=== PATIENT | female | born 1950 | race Caucasian/White ===

== ENCOUNTER 2019-07-25 17:33 | Inpatient (IN) ==
[2019-07-25] MEDS ORDERED: ASPIRIN CHEW 324 MG PO STA (18:01)
[2019-07-25 18:30] LABS: Basophils # (auto) 0.02 K/uL (0-0.2); Basophils % (auto) 0.3 %; Eosinophils # (auto) 0.12 K/uL (0-0.5); Eosinophils % (auto) 1.8 %; Hematocrit (blood only) 41.5 % (37-47); Immature Granulocytes # (auto) 0.03 K/uL (0.00-0.02); Immature Granulocytes % (auto) 0.5 %; Lymphocytes # (auto) 1.79 K/uL (1.2-3.4); Lymphocytes % (auto) 27.3 %; Mean Corpuscular Hemoglobin 31.7 pg (25-34); Mean Corpuscular Hgb Conc 33.7 g/dL (32-36); Mean Corpuscular Volume 93.9 fL (80-100); Mean Platelet Volume 10.3 fL (7.4-10.4); Monocytes # (auto) 0.48 K/uL (0.11-0.59); Monocytes % (auto) 7.3 %; Neutrophils # (auto) 4.11 K/uL (1.4-6.5); Neutrophils % (auto) 62.8 %; Platelet Count 207 K/uL (130-400); RDW Coefficient of Variation 12.8 % (11.5-14.5); RDW Standard Deviation 44.2 fL (36.4-46.3); Red Blood Count 4.42 M/uL (4.2-5.4); White Blood Count 6.55 K/uL (4.8-10.8)
[2019-07-25 18:39] LABS: BUN Creatinine Ratio 18.2 (10-20); Blood Urea Nitrogen 20 mg/dl (7-18); Calcium 9.5 mg/dl (8.5-10.1); Carbon Dioxide 28 mmol/L (21-32); Chloride 106 mmol/L (98-107); Creatinine Clr Calc Pharmacy 53.3 ml/min; Est GFR (African American) 59.7; Est GFR (Non-African American) 51.5; Glucose 114 mg/dl (70-99); Lipase 206 U/L (73-393); Potassium 4.1 mmol/L (3.5-5.1); Sodium 139 mmol/L (136-145)
[2019-07-25 18:42] LABS: Appearance Urine Clear (Clear); Bilirubin Urine Negative (Negative); Blood Urine Negative (Negative); Color Urine Yellow; Glucose Urine UA Negative (Negative); Ketones Urine Negative (Negative); Leukocyte Esterase Urine 2+ (Negative); Nitrite Urine Negative (Negative); Protein Urine Negative (Negative); Specific Gravity Urine 1.006 (1.000-1.030); Urobilinogen Urine Negative (Negative); pH Urine 6.5 (4.5-7.5)
[2019-07-25 18:44] LABS: Troponin I < 0.015 ng/ml (0-0.045)
--- NOTE | 2019-07-25 18:55 | XRay Report ---
XR chest 2V PA/lateral HISTORY: 68 years-old Female Chest Pain acute atypical chest pain COMPARISON: Chest radiographs 07/09/2008 TECHNIQUE: PA and lateral views of the chest FINDINGS: Cardiac silhouette is upper limits of normal in size, increased from comparison. No pneumothorax, ple ural effusion or overt pulmonary edema. Minimal opacities of the inferior segment lingula suggests at electasis or scarring. No airspace consolidation typical for pneumonia. Degenerative changes of the s houlders and spine. Calcified plaque of the aorta. 1.3 cm nodular opacity of the lateral left midlung is new from comparison. IMPRESSION: 1. Minimal left lung base opacities suggest atelectasis or scarring. 2. 1.3 cm nodular opacity of the lateral left midlung is new from the 2009 exam and may reflect a chanelle cified granuloma. ACT 112: Negative or not required by law. The above report was generated using voice recognition software. It may contain grammatical, syntax o r spelling errors. Results electronically sent 07/25/2019 6:54 PM to: Cleve Mendoza Electronically signed by: Garfield Ibrahim M.D. 07/25/2019 6:54 PM
[2019-07-25 18:56] LABS: Partial Thromboplastin Ratio 0.9; Partial Thromboplastin Time 23.4 Seconds (21.0-31.0); Prothrombin Time 10.2 Seconds (9.0-12.0)
[2019-07-25 19:14] LABS: Epithelial Cell Urine 0-5 /lpf (0-5)
[2019-07-25 19:16] LABS: Bacteria Urine 1+ (Negative); RBC Urine 0-4 /hpf (0-4)
--- NOTE | 2019-07-25 20:10 | History & Physical Report ---
Date of Service July 25, 2019 Assessment & Plan (1) Tachycardia-bradycardia syndrome: This is a 68-year-old female who has significant PMH of HTN, HLD, CKD stage III, history of PSVT who presents to ED at the referral of her manager semiconductor secondary to evidence of tachybradycardia syndrome on Holter monitor. Patient had outpatient 0 patch performed which resulted on 07/25/2019. Final interpretation is concerning for evidence of tachy-mila syndrome, patient with episode of atrial fibrillation with RVR along with pauses recording from 3.75 seconds. ED provider discussed case with on-call manager semiconductor who recommended admission, no IV heparin. Admit to PCU Monitor on telemetry Consult cardiology -possible EP procedure given evidence of tachybrady syndrome hold metoprolol this evening NPO after midnight (2) HTN (hypertension): Blood pressure stable on losartan and metoprolol Hold metoprolol this evening until evaluated by cardiology given report of pauses (3) HLD (hyperlipidemia): Continue statin (4) CKD (chronic kidney disease), stage III: baseline cr 1-1.10 bun/ cr 20/1.10 today (5) Asymptomatic bacteriuria: Urinalysis revealed +2 leukocyte esterase and +1 bacteria, minimal epithelial Patient asymptomatic, afebrile and wbc WNL urine culture ordered - await results (6) Abnormal CXR: CXR Revealed: 1.3 cm nodular opacity of the lateral left midlung is new from the 2009 exam and may reflect a calcified granuloma. recommend follow up with PCP For repeat evaluation asymptomatic (7) DVT prophylaxis: SCD/TEDS for now, possible EP procedure in a.m. Disposition: admit to telemetry Follow up: PCP Dr. Pringle upon discharge Pt was seen and examined in collaboration with Dr. Moran, please see addendum History of Present Illness Chief Complaint: Referred by manager semiconductor secondary to tachybradycardia syndrome. Primary Care Provider: Deedee Pringle MD This is a 68-year-old female who has significant PMH of HTN, HLD, CKD stage III, history of PSVT who presents to ED at the referral of her manager semiconductor secondary to evidence of tachybradycardia syndrome on Holter monitor. She elicits for years she has had episodes of, "my heart racing very fast for about 1 hour," and that resolves. She describes these as heart palpitations that resolve on their own. When she gets the palpitations she is otherwise asymptomatic and denies any associated chest pain, shortness of breath, fatigue, dizziness or lightheadedness. She denies any recent illness. She elicits her mom and sister have had something similar in which they both have had pacemakers. Currently she otherwise feels well and has and other family members at bedside. She denies any fever, chills, sweats, lightheadedness, dizziness, chest pain, shortness of breath, nausea, vomiting, abdominal pain, dysuria, increased urgency or frequency with urination, melena, hematochezia. Her appetite has been, "too good." She denies significant weight gain or loss. She denies any lower extremity swelling. In ED she remained hemodynamically stable. She remained in normal sinus rhythm. She underwent CBC and CMP which was relatively unremarkable, BUN and creatinine 20 and 1.10, glucose 114, mag 2.0, troponin WNL. Urinalysis +2 leukocyte esterase, +1 bacteria. She is afebrile, WBC WNL and asymptomatic. Urine culture sent. CXR: revealed 1.3 cm nodular opacity of the left lung mid zone which is new from 2009 exam, may reflect calcified granuloma, minimal left lung base opacities suggest atelectasis or scarring. EKG revealed NSR. Allergies Allergy/AdvReac Type Severity Reaction Status Date / Time No Known Allergies Allergy Unknown ? Verified 07/25/19 19:25 naproxen AdvReac Intermediate NAUSEA Verified 07/25/19 19:25 WITH STOMACH PAIN Home Medications Home Medications Medication Instructions Recorded Confirmed Type Lactobacillus acidophilus 0 mg PO DAILY 07/25/19 07/25/19 History [Acidophilus] aspirin 81 mg PO QPM 07/25/19 07/25/19 History garlic 1,000 mg PO DAILY 07/25/19 07/25/19 History losartan [Cozaar] 25 mg PO DAILY 07/25/19 07/25/19 History metoprolol succinate [Toprol XL] 25 mg PO QPM 07/25/19 07/25/19 History omega 2-ypq-gnt-fish oil [Fish Oil] 1 cap PO DAILY 07/25/19 07/25/19 History polyethylene glycol 3350 [Miralax] 17 g PO DAILY PRN 07/25/19 07/25/19 History simvastatin [Zocor] 20 mg PO QPM 07/25/19 07/25/19 History Past Med/Surg History Medical History (Updated 07/25/19 @ 20:25 by Nica Sheets PA-C) CKD (chronic kidney disease), stage III Diaphragmatic hernia History of PSVT (paroxysmal supraventricular tachycardia) HLD (hyperlipidemia) HTN (hypertension) Surgical History History of hysterectomy History of total left hip replacement Family History Mother Pacemaker Coronary heart disease Sister Pacemaker Father Myocardial infarction, Onset Age: 95 Other No pertinent family history Social History Preferred Language: Urdu Communication Ability: Effective marital status: Current Living Situation: Spouse Feels Safe at Home: Yes Smoking Status: Never smoker Hx Alcohol Use: No Hx Substance Use: No Review of Systems Review of Systems: All systems reviewed & are unremarkable except as noted in HPI & below Physical Exam Physical Exam: Constitutional: WD/WN, vitals as above, NAD, sitting up in bed, pleasant, conversing easily Head: Normocephalic, Atraumatic Eyes: PERRL, conjunctivae normal, anicteric sclerae ENMT: external ear and nose normal, oropharynx normal Neck: trachea midline, no thyromegaly normal visual inspection Respiratory: normal respiratory effort, lungs clear to auscultation, no wheeze, rales, rhonchi. Normal insp/exp effort, no accessory muscle use Cardiovascular: RRR, no murmur, trace lower extremity edema Vessels: no JVD or carotid bruit Chest: normal inspection of chest Abdomen: normal bowel sounds, soft, nontender, no hepatosplenomegaly Musculoskeletal: no cyanosis or clubbing, extremities motor strength 5/5 Skin: no rashes, warm and dry normal turgor Neurologic: PERRL, EOMI, accommodation nl, no face palsy, no dysarthria CN's II-XI intact bilaterally and moves all extremities Psychiatric: A+Ox3, euthymic affect Lymphatic: no cervical or axillary lymphadenopathy : deferred Results & Data Vital Signs (Past 12 Hours) Vital Signs Temp Pulse Pulse Resp BP BP Pulse Ox 07/25/19 19:15 83 18 135/82 93 07/25/19 18:15 95 07/25/19 17:51 36.8 C 101 H 20 165/95 H 96 Laboratory Results Short CBC 07/25/19 Range/Units 18:10 WBC 6.55 (4.8-10.8) K/uL Hgb 14.0 (12.0-16.0) g/dL Hct 41.5 (37-47) % Plt Count 207 (130-400) K/uL BMP 07/25/19 18:10 Sodium 139 Potassium 4.1 Chloride 106 Carbon Dioxide 28 BUN 20 H Creatinine 1.10 Glucose 114 H Calcium 9.5 Cardiac Enzymes 07/25/19 Range/Units 18:10 Troponin I < 0.015 (0-0.045) ng/ml Urine 07/25/19 Range/Units 18:10 Urine Color Yellow Urine Appearance Clear (Clear) Urine pH 6.5 (4.5-7.5) Ur Specific [place] 1.006 (1.000-1.030) Urine Protein Negative (Negative) Urine Glucose (UA) Negative (Negative) Diagnostic Findings ZIO Patch done as outpt on 07/08/2019 ready 07/25/2019: "REASON FOR STUDY: CONCLUSIONS: Patient had a min HR of 47 bpm, max HR of 240 bpm, and avg HR of 69 bpm. Predominant underlying rhythm was Sinus Rhythm. 1 run of Ventricular Tachycardia occurred lasting 5 beats with a max rate of 240 bpm (avg 196 bpm). 6 Supraventricular Tachycardia runs occurred, the run with the fastest interval lasting 11 beats with a max rate of 174 bpm (avg 138 bpm); the run with the fastest interval was also the longest. Atrial Fibrillation occurred (2% burden), ranging from 91-223 bpm (avg of 147 bpm), the longest lasting 1 hour 37 mins with an avg rate of 154 bpm. 3 Pauses occurred, the longest lasting 5 secs (12 bpm). Atrial Fibrillation was detected within +/- 45 seconds of symptomatic patient event(s). Isolated SVEs were rare (<1.0%), SVE Couplets were rare (<1.0%), and SVE Triplets were rare (<1.0%). Isolated VEs were rare (<1.0%), and no VE Couplets or VE Triplets were present. MD notification criteria for Rapid Atrial Fibrillation met - report posted prior to notification per account request (CG). Final Interpretation : Agree with findings listed above. Evidence of tachycardia- bradycardia syndrome. Patient's symptoms correlated with atrial fibrillation and rapid ventricular response. Three pauses recorded ranging from 3.7 to 5 seconds. Pauses occurred during atrial fibrillation. Two of the three pauses occurred during conversion from atrial fibrillation to sinus rhythm. The 3rd pause of 4.2 sec duration, occurred during atrial fibrillation terminating in a junctional escape beat followed by recurrent atrial fibrillation. No symptoms were associated with these pauses occurring between 8:23 and 9:20 p.m. on 07/15/19. Recommend electrophysiology consultation." Medications Administered Discontinued Medications Aspirin (Aspirin) 324 mg PO NOW STA Stop: 07/25/19 18:02 Last Admin: 07/25/19 18:32 Dose: 324 mg Documented by: [id number] ECG Rhythm: normal sinus Code Status & VTE Plan Code Status Full Code VTE Prophylaxis Plan VTE Prophylaxis will be ordered: Yes Supervising Physician Co-Signing Physician Notes Attending addendum The patient was seen and examined today in emergency room in presence of the family members She has been complaining of episodic palpitation that lasts for about an hour associated with some dizziness and weakness which has been going on for a while She had a ZIO Patch placed recently which showed tachybradycardia syndrome with significant pauses and was advised to come into the hospital Denies any symptoms during examination On examination No apparent distress at rest Chest-clear to auscultate bilaterally Heart-S1-S2, regular Abdomen-benign Extremities-trace to 1+ edema bilaterally CREDIT REVIEW OFFICER-alert, awake and oriented x3 Her admission labs and imaging studies and EKG reviewed Has tachybradycardia syndrome/atrial fibrillation with pauses Cardiology consulted Agree with assessment and plan as outlined above by AIMEE Sanchez Dr
--- NOTE | 2019-07-25 20:15 | Emergency Department Note ---
Entered by Radha Rodrigues acting as a scribe for Cleve Mendoza History of Present Illness General Chief complaint: Arrhythmia/Palpitations Stated complaint: AFIB- DR REQUESTING <3 MONITOR PLACEMENT Time Seen by Provider: 07/25/19 17:55 Source: patient History of Present Illness Onset (ago): week(s) (2) Location: chest Pain Consistency: + intermittent Quality: + other (arrhythmias) Associated symptoms: + denies other symptoms (falls, loss of consciousness, blood in urine or stools); no chest pain The patient is a 68 year old female who presents to the Emergency Room with complaints of intermittent arrhythmias for the past two weeks. The patient states she was wearing a monitor for two weeks and she received a call from Dr. Gould's office today about the results. She notes she was told to come to the ER and states she is supposed to be getting a pacemaker placed tomorrow. The patient denies falls, loss of consciousness, chest pain, and blood in her urine or stools. Home Medications Home Medications Medication Instructions Recorded Confirmed Type Lactobacillus acidophilus 0 mg PO DAILY 07/25/19 07/25/19 History [Acidophilus] aspirin 81 mg PO QPM 07/25/19 07/25/19 History garlic 1,000 mg PO DAILY 07/25/19 07/25/19 History losartan [Cozaar] 25 mg PO DAILY 07/25/19 07/25/19 History metoprolol succinate [Toprol XL] 25 mg PO QPM 07/25/19 07/25/19 History omega 0-sql-peu-fish oil [Fish Oil] 1 cap PO DAILY 07/25/19 07/25/19 History polyethylene glycol 3350 [Miralax] 17 g PO DAILY PRN 07/25/19 07/25/19 History simvastatin [Zocor] 20 mg PO QPM 07/25/19 07/25/19 History Allergies Allergy/AdvReac Type Severity Reaction Status Date / Time No Known Allergies Allergy Unknown ? Verified 07/25/19 19:25 naproxen AdvReac Intermediate NAUSEA Verified 07/25/19 19:25 WITH STOMACH PAIN Past Med/Surg History Medical History (Updated 07/25/19 @ 20:25 by Nica Sheets PA-C) CKD (chronic kidney disease), stage III Diaphragmatic hernia History of PSVT (paroxysmal supraventricular tachycardia) HLD (hyperlipidemia) HTN (hypertension) Surgical History History of hysterectomy History of total left hip replacement Family History Mother Pacemaker Coronary heart disease Sister Pacemaker Father Myocardial infarction, Onset Age: 95 Other No pertinent family history Social History Preferred Language: Chinese Communication Ability: Effective marital status: Current Living Situation: Spouse Feels Safe at Home: Yes Smoking Status: Never smoker Hx Alcohol Use: No Hx Substance Use: No Review of Systems See HPI for pertinent positives & negatives. and A total of 10 systems reviewed and were otherwise negative Physical Exam Vital Signs Vital Signs - 24 hr 07/25/19 17:51 07/25/19 18:15 07/25/19 19:15 Temperature 36.8 C Temperature Source Oral Pulse Rate 101 H Pulse Rate [Finger] 83 Pulse Rhythm Regular Pulse Rhythm [Finger] Regular Pulse Strength [Finger] Normal Respiratory Rate 20 18 Respiratory Effort / Characteristics Non-Labored Spontaneous Respiratory Depth Normal Respiratory Pattern Regular Blood Pressure 165/95 H Blood Pressure [Left Arm] 135/82 Blood Pressure Mean 118 Blood Pressure Mean [Left Arm] 99 Blood Pressure Position Sitting Blood Pressure Position [Left Arm] Lying Pulse Oximetry 96 95 93 Oxygen Delivery Method Room Air Room Air Sepsis Recent Fever Within 48 Hours No Sepsis New/Unexplained Change in Mental Status No Sepsis Action Taken by Nursing No Action Required GENERAL: She is oriented to person, place, and time. She appears well-developed and well-nourished. She does not appear distressed. HENT: Exam performed. Head: Normocephalic and atraumatic. Right Ear: External ear normal. No mastoid tenderness. Left Ear: External ear normal. No mastoid tenderness. Mouth/Throat: The oropharynx is clear and moist. No trismus in the jaw. No dental abscesses or uvula swelling. No oropharyngeal exudate or tonsillar abscesses. EYES: Conjunctivae and EOM are normal. Pupils are equal, round, and reactive to light. Right eye exhibits no discharge. Left eye exhibits no discharge. No scleral icterus. NECK: Normal range of motion. Neck supple. No JVD present. No spinous process tenderness present. No carotid bruit present. No rigidity. No tracheal deviation and normal range of motion present. No Brudzinski's sign and no Kernig's sign noted. CV: Normal rate, regular rhythm, normal heart sounds and intact distal pulses. There is no peripheral edema. Palpable radial pulses bue. PULM/CHEST: Effort normal and breath sounds normal. No respiratory distress. No stridor. She has no wheezes. She has no rales. Chest Wall: She exhibits no tenderness. ABD: The abdomen is soft. Bowel sounds are normal. She has no distension. No mass is present. There is no tenderness. There is no rebound, no guarding, no Houston's sign and no tenderness at McBurney's point. Rovsig negative MUSC/SKEL: Normal range of motion. There is no peripheral edema, tenderness or deformity. LYMPH: No cervical adenopathy. NEURO: She is alert and oriented to person, place, and time. She has normal strength. No cranial nerve deficit or sensory deficit. Coordination and gait nor mal. GCS eye subscore is 4. GCS verbal subscore is 5. GCS motor subscore is 6. cerbellar tests wnl. SKIN: Skin is warm and dry. She is not diaphoretic. PSYCH: She has a normal mood and affect. Her behavior is normal. Judgment and thought content normal. Course Course 1800: Past medical records reviewed. The patient was evaluated in room A04. A complete history and physical exam was performed. Continuous Cardiac Monitoring: An order was placed for continuous cardiac mon itoring. The monitor shows a rate of 90 with sinus rhythm. 1830: The patient's past holter monitor records from 07/25/2019 showed 1 run of ventricular tachycardia which occurred lasting 5 beats with a max rate of 240 bpm. 6 supraventricular tachycardia runs occurred. The run with the fastest interval was also the longest. Atrial Fibrillation occurred ranging from 91-223 bpm. Pauses occurred, the longest lasting 5 secs. Evidence of tachycardia- bradycardia syndrome. 0: Vital signs stable. Labs and imaging within normal limits. I spoke with Dr. Lino Renee Hospitalist who agrees the patient should be admitted. He recommends no anticoagulation at this time and NPO after midnight. Administered Medications Discontinued Medications Aspirin (Aspirin) 324 mg PO NOW STA Stop: 07/25/19 18:02 Last Admin: 07/25/19 18:32 Dose: 324 mg Documented by: [id number] Medical Decision Making Medical Records Attestation: I reviewed the patient's medical records. Home Medications Current Medication List: was personally reviewed by me Laboratory Data Attestation: I reviewed the patient's lab results. Result diagrams: 07/25/19 18:10 07/25/19 18:10 Lab Results 07/25/19 07/25/19 07/25/19 Range/Units 18:10 18:10 18:10 WBC 6.55 (4.8-10.8) K/uL RBC 4.42 (4.2-5.4) M/uL Hgb 14.0 (12.0-16.0) g/dL Hct 41.5 (37-47) % MCV 93.9 (80-100) fL MCH 31.7 (25-34) pg MCHC 33.7 (32-36) g/dL RDW Std Deviation 44.2 (36.4-46.3) fL RDW Coeff of Sebastian 12.8 (11.5-14.5) % Plt Count 207 (130-400) K/uL MPV 10.3 (7.4-10.4) fL Immature Gran % (Auto) 0.5 % Neut % (Auto) 62.8 % Lymph % (Auto) 27.3 % [place] % (Auto) 7.3 % Eos % (Auto) 1.8 % Baso % (Auto) 0.3 % Immature Gran # (Auto) 0.03 H (0.00-0.02) K/uL Neut # (Auto) 4.11 (1.4-6.5) K/uL Lymph # (Auto) 1.79 (1.2-3.4) K/uL [place] # (Auto) 0.48 (0.11-0.59) K/uL Eos # (Auto) 0.12 (0-0.5) K/uL Baso # (Auto) 0.02 (0-0.2) K/uL PT 10.2 (9.0-12.0) Seconds INR 1.0 (0.9-1.1) APTT 23.4 (21.0-31.0) Seconds PTT Ratio 0.9 Sodium 139 (136-145) mmol/L Potassium 4.1 (3.5-5.1) mmol/L Chloride 106 (98-107) mmol/L Carbon Dioxide 28 (21-32) mmol/L Anion Gap 5.0 (3-11) BUN 20 H (7-18) mg/dl Creatinine 1.10 (0.6-1.2) mg/dl Est Cr Clr Drug Dosing 53.3 ml/min Est GFR ( Amer) 59.7 Est GFR (Non-Af Amer) 51.5 BUN/Creatinine Ratio 18.2 (10-20) Glucose 114 H (70-99) mg/dl Calcium 9.5 (8.5-10.1) mg/dl Magnesium 2.0 (1.8-2.4) mg/dl Troponin I < 0.015 (0-0.045) ng/ml Lipase 206 (73-393) U/L Urine Color Urine Appearance (Clear) Urine pH (4.5-7.5) Ur Specific [place] (1.000-1.030) Urine Protein (Negative) Urine Glucose (UA) (Negative) Urine Ketones (Negative) Urine Blood (Negative) Urine Nitrite (Negative) Urine Bilirubin (Negative) Urine Urobilinogen (Negative) Ur Leukocyte Esterase (Negative) Urine RBC (0-4) /hpf Urine WBC (0-5) /hpf Ur Epithelial Cells (0-5) /lpf Urine Bacteria (Negative) 07/25/19 Range/Units 18:10 WBC (4.8-10.8) K/uL RBC (4.2-5.4) M/uL Hgb (12.0-16.0) g/dL Hct (37-47) % MCV (80-100) fL MCH (25-34) pg MCHC (32-36) g/dL RDW Std Deviation (36.4-46.3) fL RDW Coeff of Sebastian (11.5-14.5) % Plt Count (130-400) K/uL MPV (7.4-10.4) fL Immature Gran % (Auto) % Neut % (Auto) % Lymph % (Auto) % [place] % (Auto) % Eos % (Auto) % Baso % (Auto) % Immature Gran # (Auto) (0.00-0.02) K/uL Neut # (Auto) (1.4-6.5) K/uL Lymph # (Auto) (1.2-3.4) K/uL [place] # (Auto) (0.11-0.59) K/uL Eos # (Auto) (0-0.5) K/uL Baso # (Auto) (0-0.2) K/uL PT (9.0-12.0) Seconds INR (0.9-1.1) APTT (21.0-31.0) Seconds PTT Ratio Sodium (136-145) mmol/L Potassium (3.5-5.1) mmol/L Chloride (98-107) mmol/L Carbon Dioxide (21-32) mmol/L Anion Gap (3-11) BUN (7-18) mg/dl Creatinine (0.6-1.2) mg/dl Est Cr Clr Drug Dosing ml/min Est GFR ( Amer) Est GFR (Non-Af Amer) BUN/Creatinine Ratio (10-20) Glucose (70-99) mg/dl Calcium (8.5-10.1) mg/dl Magnesium (1.8-2.4) mg/dl Troponin I (0-0.045) ng/ml Lipase (73-393) U/L Urine Color Yellow Urine Appearance Clear (Clear) Urine pH 6.5 (4.5-7.5) Ur Specific [place] 1.006 (1.000-1.030) Urine Protein Negative (Negative) Urine Glucose (UA) Negative (Negative) Urine Ketones Negative (Negative) Urine Blood Negative (Negative) Urine Nitrite Negative (Negative) Urine Bilirubin Negative (Negative) Urine Urobilinogen Negative (Negative) Ur Leukocyte Esterase 2+ H (Negative) Urine RBC 0-4 (0-4) /hpf Urine WBC 5-10 H (0-5) /hpf Ur Epithelial Cells 0-5 (0-5) /lpf Urine Bacteria 1+ H (Negative) Imaging Data Radiologist's Impression: Radiology results as stated below per my review and the radiologist's interpretation: XR chest 2V PA/lateral HISTORY: 68 years-old Female Chest Pain acute atypical chest pain COMPARISON: Chest radiographs 07/09/2008 TECHNIQUE: PA and lateral views of the chest FINDINGS: Cardiac silhouette is upper limits of normal in size, increased from comparison. No pneumothorax, pleural effusion or overt pulmonary edema. Minimal opacities of the inferior segment lingula suggests atelectasis or scarring. No airspace consolidation typical for pneumonia. Degenerative changes of the shoulders and spine. Calcified plaque of the aorta. 1.3 cm nodular opacity of the lateral left midlung is new from comparison. IMPRESSION: 1. Minimal left lung base opacities suggest atelectasis or scarring. 2. 1.3 cm nodular opacity of the lateral left midlung is new from the 2009 exam and may reflect a calcified granuloma. ACT 112: Negative or not required by law. The above report was generated using voice recognition software. It may contain grammatical, syntax or spelling errors. Results electronically sent 07/25/2019 6:54 PM to: Cleve Mendoza Electronically signed by: Garfield Ibrahim M.D. 07/25/2019 6:54 PM ECG Data Attestation: I personally reviewed and interpreted this ECG as follows: Indication: + palpitations Rate (beats per minute): 94 Rhythm: + sinus rhythm ECG Intervals/blocks: + Normal QRS, + Normal RI and + Normal QT-c ECG ST segments: no ST depression and no ST elevation Blood Pressure Blood Pressure Findings: Elevated blood pressure Blood Pressure Disposition: further management by hospitalist SAÚL Narrative 1800: Past medical records reviewed. The patient was evaluated in room A04. A complete history and physical exam was performed. Continuous Cardiac Monitoring: An order was placed for continuous cardiac monitoring. The monitor shows a rate of 90 with sinus rhythm. 1830: The patient's past holter monitor records from 07/25/2019 showed 1 run of v entricular tachycardia which occurred lasting 5 beats with a max rate of 240 bpm. 6 supraventricular tachycardia runs occurred. The run with the fastest interval was also the longest. Atrial Fibrillation occurred ranging from 91-223 bpm. Pauses occurred, the longest lasting 5 secs. Evidence of tachycardia- bradycardia syndrome. 1910: Vital signs stable. Labs and imaging within normal limits. I spoke with Dr. Lino Renee Hospitalist who agrees the patient should be admitted. He recommends no anticoagulation at this time and NPO after midnight. Impression & Plan Tachycardia-bradycardia syndrome Discharge Plan Visit Data Chief Complaint: Arrhythmia/Palpitations Stated Complaint: AFIB- DR REQUESTING <3 MONITOR PLACEMENT ED Provider: Cleve Mendoza Discharge Problem: Tachycardia-bradycardia syndrome Patient Disposition: Being Evaluated by Hospitalist Discharge Instructions Interventions: ED Discharge Assessment Last Done: 07/25/19 20:22 The scribe's documentation has been prepared under my direction and personally reviewed by me in its entirety. I confirm that the note above accurately reflects all work, treatment, procedures, and medical decision making performed by me.
[2019-07-25] MEDS ORDERED: ONDANSETRON INJ 2 MG/ML 2 ML VIAL IV PRN (20:35)
[2019-07-25] MEDS ORDERED: ALUMINUM/MAGNESIUM SUSP 30 ML UDC PO PRN (20:35)
[2019-07-25] MEDS ORDERED: POLYETHYLENE (MIRALAX) 17 GM PACK PO PRN (20:35)
[2019-07-25] MEDS ORDERED: ASPIRIN 81 MG ECTAB PO SCH (21:00)
[2019-07-25] MEDS ORDERED: METOPROLOL SUCC 25MG EXT REL TAB PO SCH ×2 (21:00)
[2019-07-25] MEDS: SIMVASTATIN 20 MG TAB PO SCH (21:43)
--- NOTE | 2019-07-26 09:37 | Cardiology Consultation ---
Date of Consultation July 26, 2019 Assessment & Plan (1) Tachycardia-bradycardia syndrome: (2) PAF (paroxysmal atrial fibrillation): History of Present Illness Attending Physician: Kiel Bernal MD History of Present Illness This is a 68-year-old female who has been experiencing heart palpitations. As an outpatient she had an event monitor which revealed runs of paroxysmal atrial fibrillation with prolonged pauses during conversion. She presented to the emergency department last evening and has been admitted. The plan is for her to undergo a permanent pacemaker later today and perhaps the start of a ntiarrhythmic medication. Allergies Allergy/AdvReac Type Severity Reaction Status Date / Time No Known Allergies Allergy Unknown ? Verified 07/25/19 19:25 naproxen AdvReac Intermediate NAUSEA Verified 07/25/19 19:25 WITH STOMACH PAIN Home Medications Home Medications Medication Instructions Recorded Confirmed Type Lactobacillus acidophilus 0 mg PO DAILY 07/25/19 07/25/19 History [Acidophilus] aspirin 81 mg PO QPM 07/25/19 07/25/19 History garlic 1,000 mg PO DAILY 07/25/19 07/25/19 History losartan [Cozaar] 25 mg PO DAILY 07/25/19 07/25/19 History metoprolol succinate [Toprol XL] 25 mg PO QPM 07/25/19 07/25/19 History omega 5-eoy-hdr-fish oil [Fish Oil] 1 cap PO DAILY 07/25/19 07/25/19 History polyethylene glycol 3350 [Miralax] 17 g PO DAILY PRN 07/25/19 07/25/19 History simvastatin [Zocor] 20 mg PO QPM 07/25/19 07/25/19 History apixaban [Eliquis] 5 mg PO BID 30 Days #60 tab 07/27/19 Rx Patient History Medical History CKD (chronic kidney disease), stage III Diaphragmatic hernia History of PSVT (paroxysmal supraventricular tachycardia) HLD (hyperlipidemia) HTN (hypertension) Surgical History History of hysterectomy History of total left hip replacement Family History Mother Pacemaker Coronary heart disease Sister Pacemaker Father Myocardial infarction, Onset Age: 95 Other No pertinent family history Social History Preferred Language: Frisian Communication Ability: Effective Counter Cutter Required: No Beliefs That Will Affect Care: None marital status: Current Living Situation: Spouse Other Information That Helps Us Care for You: No Feels Safe at Home: Yes Safety Concerns: Feels Safe At This Time Smoking Status: Unknown if ever smoked Hx Alcohol Use: No Hx Substance Use: No Review of Systems Review of Systems: All systems reviewed & are unremarkable except as noted in HPI & below Nothing additional to add Physical Exam Physical Exam: General: no acute distress and stated age Head: normocephalic, no masses, lesions, tenderness or abnormalities Eyes: conjunctiva are pink and non-injected, sclera clear Neck: supple, no adenopathy, no bruits, normal jugular venous pulse, no hepatoj ugular reflux Chest: normal shape and normal respiratory effort Lungs: clear to auscultation and percussion Cardiac Exam: - regular rate & rhythm, no murmurs gallops or rubs - normal S1, normal S2 Pulses: 2(+) throughout Abdomen: abdomen soft, non-tender, no abnormal masses and no hepatosplenomegaly Musculoskeletal: no gait disturbance, no joint inflammation, no deforming arthritis Extremities: no edema and no cyanosis Neuro: grossly normal exam Results & Data ([facility]) Vital Signs (Past 12 Hours) Vital Signs Temp Pulse Pulse Resp BP BP Pulse Ox 07/26/19 07:38 36.7 C 53 L 18 126/76 96 07/26/19 03:23 36.6 C 53 L 20 126/72 96 07/26/19 00:00 70 07/25/19 23:18 36.6 C 54 L 18 148/79 H 96 Laboratory Results Laboratory Results - last 24 hr 07/25/19 07/25/19 07/25/19 18:10 18:10 18:10 WBC 6.55 RBC 4.42 Hgb 14.0 Hct 41.5 MCV 93.9 MCH 31.7 MCHC 33.7 RDW Std Deviation 44.2 RDW Coeff of Sebastian 12.8 Plt Count 207 MPV 10.3 Immature Gran % (Auto) 0.5 Neut % (Auto) 62.8 Lymph % (Auto) 27.3 [place] % (Auto) 7.3 Eos % (Auto) 1.8 Baso % (Auto) 0.3 Immature Gran # (Auto) 0.03 H Neut # (Auto) 4.11 Lymph # (Auto) 1.79 [place] # (Auto) 0.48 Eos # (Auto) 0.12 Baso # (Auto) 0.02 PT 10.2 INR 1.0 APTT 23.4 PTT Ratio 0.9 Sodium 139 Potassium 4.1 Chloride 106 Carbon Dioxide 28 Anion Gap 5.0 BUN 20 H Creatinine 1.10 Est Cr Clr Drug Dosing 53.3 Est GFR ( Amer) 59.7 Est GFR (Non-Af Amer) 51.5 BUN/Creatinine Ratio 18.2 Glucose 114 H Calcium 9.5 Magnesium 2.0 Troponin I < 0.015 Lipase 206 Urine Color Urine Appearance Urine pH Ur Specific [place] Urine Protein Urine Glucose (UA) Urine Ketones Urine Blood Urine Nitrite Urine Bilirubin Urine Urobilinogen Ur Leukocyte Esterase Urine RBC Urine WBC Ur Epithelial Cells Urine Bacteria 07/25/19 18:10 WBC RBC Hgb Hct MCV MCH MCHC RDW Std Deviation RDW Coeff of Sebastian Plt Count MPV Immature Gran % (Auto) Neut % (Auto) Lymph % (Auto) [place] % (Auto) Eos % (Auto) Baso % (Auto) Immature Gran # (Auto) Neut # (Auto) Lymph # (Auto) [place] # (Auto) Eos # (Auto) Baso # (Auto) PT INR APTT PTT Ratio Sodium Potassium Chloride Carbon Dioxide Anion Gap BUN Creatinine Est Cr Clr Drug Dosing Est GFR ( Amer) Est GFR (Non-Af Amer) BUN/Creatinine Ratio Glucose Calcium Magnesium Troponin I Lipase Urine Color Yellow Urine Appearance Clear Urine pH 6.5 Ur Specific [place] 1.006 Urine Protein Negative Urine Glucose (UA) Negative Urine Ketones Negative Urine Blood Negative Urine Nitrite Negative Urine Bilirubin Negative Urine Urobilinogen Negative Ur Leukocyte Esterase 2+ H Urine RBC 0-4 Urine WBC 5-10 H Ur Epithelial Cells 0-5 Urine Bacteria 1+ H Medications Administered Current Inpatient Medications Acetaminophen (Tylenol) 650 mg PO Q4H PRN PRN Reason: Pain or Fever Stop: 08/24/19 20:34 Al Hydrox/Mg Hydrox/Simethicone (Maalox) 15 ml PO Q4H PRN PRN Reason: Dyspepsia Stop: 08/24/19 20:34 Aspirin (Ecotrin Ectab) 81 mg PO QPM JEANNIE Stop: 08/24/19 20:59 Last Admin: 07/25/19 21:42 Dose: Not Given Documented by: Fish Oil ([place]-3 (Purified Fish Oil)) 1 gm PO DAILY JEANNIE Stop: 08/25/19 08:59 Sodium Chloride (Nss 1000ml) 1,000 mls @ 80 mls/hr IV .[id number] JEANNIE Stop: 08/25/19 09:44 Losartan Potassium (Cozaar) 25 mg PO DAILY JEANNIE Stop: 08/25/19 08:59 Metoprolol Succinate (Toprol Xl) 25 mg PO QPM JEANNIE Stop: 08/24/19 20:59 Last Admin: 07/25/19 21:43 Dose: 25 mg Documented by: Ondansetron HCl (Zofran) 4 mg IV Q6H PRN PRN Reason: Nausea Stop: 08/24/19 20:34 Polyethylene Glycol (Miralax Powder Packet) 17 gm PO DAILY PRN PRN Reason: Constipation Stop: 08/24/19 20:34 Simvastatin (Zocor) 20 mg PO QPM JEANNIE Stop: 08/24/19 20:59 Last Admin: 07/25/19 21:43 Dose: 20 mg Documented by:
[2019-07-26] MEDS ORDERED: SODIUM CHLORIDE 0.9% 1000ML 1,000 ML IV SCH (09:45)
--- NOTE | 2019-07-26 09:55 | Hospitalist Progress Note ---
Date of Service July 26, 2019 Assessment & Plan (1) Tachycardia-bradycardia syndrome: -as per admission history and physical "This is a 68-year-old female who has significant PMH of HTN, HLD, CKD stage III, history of PSVT who presents to ED at the referral of her conference assistant secondary to evidence of tachybradycardia syndrome on Holter monitor. Patient had outpatient zio patch performed which resulted on 07/25/2019. Final interpretation is concerning for evidence of tachy- mila syndrome, patient with episode of atrial fibrillation with RVR along with pauses recording from 3.75 seconds. ED provider discussed case with on-call conference assistant who recommended admission" -patient planned to have pacemaker placement on 07/26/2019 (2) HTN (hypertension): -on losartan -beta blockers are held (3) HLD (hyperlipidemia): Continue statin (4) CKD (chronic kidney disease), stage III: -monitor renal function (5) Asymptomatic bacteriuria: Urinalysis revealed +2 leukocyte esterase and +1 bacteria, minimal epithelial Patient asymptomatic, afebrile and wbc WNL urine culture resullts are pending (6) Abnormal CXR: CXR Revealed: 1.3 cm nodular opacity of the lateral left midlung is new from the 2009 exam and may reflect a calcified granuloma. recommend follow up with PCP For repeat evaluation breathing is asymptomatic (7) DVT prophylaxis: SCD/TEDS for now [phone] Admission and Anticipated Discharge Date Admission Date: July 25, 2019 Subjective Patient seen and examined while sitting up in the bed. no distress. breathing on room air. no chest pain. no palpitations. no abdomen pain. no vomiting she is awaiting pacemaker placement as recommended by cardiology service Review of Systems Review of Systems: All systems reviewed & are unremarkable except as noted in HPI & below Physical Exam Eyes: PERRL, conjunctivae normal, anicteric sclerae EOM intact bilaterally ENMT: external ear and nose normal, oropharynx normal Neck: normal visual inspection Respiratory: normal respiratory effort, lungs clear to auscultation Cardiovascular: Rate/Rhythm: + bradycardic Gastrointestinal (Abdomen): normal bowel sounds, soft, nontender, no hepatosplenomegaly Musculoskeletal: Head/Neck/Chest: normocephalic and head atraumatic Neurologic: PERRL, EOMI, accommodation nl, no face palsy, no dysarthria CN's II-XI intact bilaterally Psychiatric: A+Ox3, euthymic affect Results & Data ([facility]) Vital Signs (Past 12 Hours) Vital Signs Temp Pulse Pulse Resp BP BP Pulse Ox 07/26/19 07:38 36.7 C 53 L 18 126/76 96 07/26/19 03:23 36.6 C 53 L 20 126/72 96 07/26/19 00:00 70 07/25/19 23:18 36.6 C 54 L 18 148/79 H 96
[2019-07-26] MEDS: OMEGA-3 (PURIFIED FISH OIL) 1 GM CAP PO SCH (10:01)
[2019-07-26] MEDS: LOSARTAN POTASSIUM 25 MG TAB PO SCH (10:01)
[2019-07-26] MEDS ORDERED: BACITRACIN INJ 50,000 UNIT VIAL ONE (11:23)
[2019-07-26] MEDS ORDERED: BUPIVACAINE 0.25% 30 ML VIAL ONE (11:23)
[2019-07-26] MEDS ORDERED: LIDOCAINE HCL 1% 20 ML VIAL ONE (11:23)
[2019-07-26] MEDS ORDERED: MIDAZOLAM HCL 5 MG/ML 1 ML VIAL ONE (11:27)
[2019-07-26] MEDS ORDERED: CEFAZOLIN 250 MG/ML 1 GM VIAL ONE (11:27)
[2019-07-26] MEDS ORDERED: fentaNYL citrate 100 MCG/2 ML VIAL ONE (11:27)
--- NOTE | 2019-07-26 12:43 | History & Physical Bridge Note ---
Date of Service July 26, 2019 History & Physical Bridge Note I have examined the patient, reviewed the History & Physical and in the interval since the performance of the History & Physical I have noted the following changes of clinical significance: pt with TBS for dual chamber ppm; consents signed
--- NOTE | 2019-07-26 12:44 | Pre Anesthesia Assessment ---
Date of Service July 26, 2019 Pre Sedation Assessment Vital Signs Temp Pulse Pulse Resp BP BP BP 07/26/19 11:07 36.7 C 56 L 18 129/74 07/26/19 08:00 61 07/26/19 07:38 36.7 C 53 L 18 126/76 07/26/19 03:23 36.6 C 53 L 20 126/72 07/26/19 00:00 70 07/25/19 23:18 36.6 C 54 L 18 148/79 H 07/25/19 21:32 36.5 C 79 18 155/96 H 07/25/19 21:00 77 07/25/19 19:15 83 18 135/82 07/25/19 18:15 07/25/19 17:51 36.8 C 101 H 20 165/95 H Pulse Ox 07/26/19 11:07 95 07/26/19 08:00 07/26/19 07:38 96 07/26/19 03:23 96 07/26/19 00:00 07/25/19 23:18 96 07/25/19 21:32 98 07/25/19 21:00 07/25/19 19:15 93 07/25/19 18:15 95 07/25/19 17:51 96 Cardiovascular + bradycardic Respiratory normal respiratory effort, lungs clear to auscultation Pre-Sedation Airway Assessment Smoking Status: Unknown if ever smoked Hx Sleep Apnea: No Short, Thick Neck: No Thyromental Distance: > or= 3.5 Finger Breadths Oral Cavity: + WNL Mallampati Class: III ASA: ASA3 NPO Status Date of Last Intake of Fluids: 07/26/19 Time of Last Intake of Fluids: 07:00 Last Oral Intake of Fluids Comment: meds Date of Last Intake of Solid Food: 07/25/19 Time of Last Intake of Solid Foods: 17:00 Procedure Planning Contraindications for Sedation: none Current Medications Reviewed: Yes Notes The planned sedation has been discussed with the patient. Informed Consent was obtained. I have identified the patient, determined the appropriateness of sedation and have assessed the patient immediately prior to the procedure. All medicine(s) and interventions are by my order.
--- NOTE | 2019-07-26 15:13 | Operative Report ---
Post Operative Report Pre & Post Diagnosis tbs Operation Date: 07/26/19 12:30 <No data on this case meets the specified criteria> I identified the patient and participated in the time-out.: Yes Procedure Operation Date: 07/26/19 12:30 Actual Procedures p Pacer with A/V Leads (Dual) - Dalila Bowling DO Surgeon Dalila Bowling, Equipment Operator/Laborer none Estimated Blood Loss 15 Findings Consistent with Post-Op Diagnosis Specimens none Description of Procedure see official report I attest to the content of the Intraoperative Record and any orders documented therein. Any exceptions are noted below.
--- NOTE | 2019-07-26 15:13 | Post Anesthesia Assessment ---
Date of Service July 26, 2019 Post Sedation Assessment Vital Signs Temp Pulse Pulse Resp BP BP BP 07/26/19 11:07 36.7 C 56 L 18 129/74 07/26/19 08:00 61 07/26/19 07:38 36.7 C 53 L 18 126/76 07/26/19 03:23 36.6 C 53 L 20 126/72 07/26/19 00:00 70 07/25/19 23:18 36.6 C 54 L 18 148/79 H 07/25/19 21:32 36.5 C 79 18 155/96 H 07/25/19 21:00 77 07/25/19 19:15 83 18 135/82 07/25/19 18:15 07/25/19 17:51 36.8 C 101 H 20 165/95 H Pulse Ox 07/26/19 11:07 95 07/26/19 08:00 07/26/19 07:38 96 07/26/19 03:23 96 07/26/19 00:00 07/25/19 23:18 96 07/25/19 21:32 98 07/25/19 21:00 07/25/19 19:15 93 07/25/19 18:15 95 07/25/19 17:51 96 Recovery Score Activity: Moves 4 extremities Respiration: Deep Breath/Cough Circulation: +/-20% PreAnes Value Consciousness: Fully Awake Oxygen Saturation: > 92% On Room Air Discharge Sedation Level of Care: Fast Track Phase II Post Sedation Plan On clinical assessment, the patient appears to have tolerated the sedation without complications. Patient is recovering as anticipated. Patient will continue to be monitored by nursing and may be discharged when sedation discharge criteria are met per below protocol. Upon Completions of procedure up to 15 minutes continue every 5 minute vital signs and the P.A.R. score; then discharge to a Phase I or Fast Track to Phase II per the following guidelines: * Discharge Patient to appropriate Phase II area if PAR is 8 or greater or return to pre- procedure baseline. The post - procedure orders will be as directed. * If PAR score is less than 8 or not return to pre-procedure baseline then patient will follow Phase I monitoring till PAR is reached for Phase II. The Phase I may be done in procedure room or may call to secure a Phase I area. * If naloxone or flumazenil are used for reversal, hold in Phase I for continued monitoring from when last reversal dose was given for a minimum of 60 minutes or longer pending the nurse and/or physician discretion of patient condition before discharge to Phase II. Please call the Sedation Physician to re-evaluate and complete post-note for discharge to Phase II area. Do NOT discharge from procedure sedation or Phase 1 until post- sedation evaluation note is complete by procedure /sedation MD Sedation Discharge Instructions to be given to the patient at discharge to home.
[2019-07-26] MEDS ORDERED: SURGICAL BRA XX SCH (15:15)
[2019-07-26] MEDS ORDERED: METOPROLOL SUCC 50MG EXT REL TAB PO SCH (15:30)
--- NOTE | 2019-07-26 15:46 | Electrocardiogram Report ---
Test Reason : Blood Pressure : / mmHG Vent. Rate : 094 BPM Atrial Rate : 094 BPM P-R Int : 188 ms QRS Dur : 078 ms QT Int : 346 ms P-R-T Axes : 041 -35 036 degrees QTc Int : 432 ms Poor data quality, interpretation may be adversely affected Normal sinus rhythm Left axis deviation Poor R wave progression, consider anterior WA vs. lead placement vs. LVH Abnormal ECG When compared with ECG of 09-JUL-2008 15:33, No significant change Confirmed by Ercik Chung ([id number]) on 07/26/2019 3:46:18 PM Referred By: Faustino Anderson Confirmed By:Erick Chung
--- NOTE | 2019-07-26 15:53 | Electrocardiogram Report ---
Test Reason : Blood Pressure : / mmHG Vent. Rate : 054 BPM Atrial Rate : 054 BPM P-R Int : 186 ms QRS Dur : 082 ms QT Int : 436 ms P-R-T Axes : 037 -18 019 degrees QTc Int : 413 ms Sinus bradycardia Abnormal ECG When compared with ECG of 09-JUL-2008 15:33, T wave inversion now evident in Anterior leads Confirmed by Erick Chung ([id number]) on 07/26/2019 3:53:35 PM Referred By: Faustino Anderson Confirmed By:Erick Chung
[2019-07-26] MEDS ORDERED: OXYCODONE HCL IR 5 MG TAB (IMMEDIATE RELEASE) PO PRN (17:00)
[2019-07-26] MEDS: ACETAMINOPHEN 325 MG TAB PO PRN ×2 (17:00→22:09)
--- NOTE | 2019-07-26 17:08 | Electrocardiogram Report ---
Test Reason : Blood Pressure : / mmHG Vent. Rate : 060 BPM Atrial Rate : 060 BPM P-R Int : 130 ms QRS Dur : 080 ms QT Int : 392 ms P-R-T Axes : 004 -17 -69 degrees QTc Int : 392 ms Atrial-paced rhythm Abnormal ECG When compared with ECG of 26-JUL-2019 06:37, Electronic atrial pacemaker has replaced Sinus rhythm T wave inversion more evident in Inferior leads Confirmed by Erick Chung ([id number]) on 07/26/2019 5:07:35 PM Referred By: Faustino Anderson Confirmed By:Erick Chung
[2019-07-26] MEDS ORDERED: Nursing to Pharmacy Communication ONE (19:51)
[2019-07-26] MEDS: SIMVASTATIN 20 MG TAB PO SCH (19:53)
[2019-07-27 06:59] LABS: Basophils # (auto) 0.02 K/uL (0-0.2); Basophils % (auto) 0.3 %; Eosinophils # (auto) 0.11 K/uL (0-0.5); Eosinophils % (auto) 1.7 %; Hematocrit (blood only) 42.2 % (37-47); Hemoglobin 14.2 g/dL (12.0-16.0); Immature Granulocytes # (auto) 0.02 K/uL (0.00-0.02); Immature Granulocytes % (auto) 0.3 %; Mean Corpuscular Hemoglobin 31.3 pg (25-34); Mean Corpuscular Hgb Conc 33.6 g/dL (32-36); Mean Platelet Volume 10.3 fL (7.4-10.4); Monocytes # (auto) 0.46 K/uL (0.11-0.59); Neutrophils # (auto) 4.23 K/uL (1.4-6.5); Neutrophils % (auto) 64.7 %; Platelet Count 194 K/uL (130-400); RDW Coefficient of Variation 12.7 % (11.5-14.5); RDW Standard Deviation 43.3 fL (36.4-46.3); Red Blood Count 4.54 M/uL (4.2-5.4); White Blood Count 6.54 K/uL (4.8-10.8)
[2019-07-27 07:29] LABS: Calcium 9.1 mg/dl (8.5-10.1); Est GFR (African American) 65.5; Est GFR (Non-African American) 56.5; Potassium 3.9 mmol/L (3.5-5.1)
[2019-07-27 07:31] LABS: Albumin Globulin Ratio 1.1 (0.9-2); Globulin 3.7 gm/dl (2.5-4.0); Total Protein 7.7 gm/dl (6.4-8.2)
--- NOTE | 2019-07-27 09:03 | XRay Report ---
XR chest 2V PA/lateral CLINICAL HISTORY: 68 years-old Female presenting with status post pacemaker placement. TECHNIQUE: PA and lateral views of the chest were obtained. COMPARISON: 07/25/2019. FINDINGS: There has been interval placement of a left subclavian 2-lead pacer with leads to the right atrium an d right ventricular apex. Leads are appropriately positioned. No evidence of retained foreign body. C ardiomediastinal silhouette otherwise normal. No focal opacity. No large effusion or pneumothorax. A reservoir Osseous structures normal. Upper abdomen normal. IMPRESSION: 1. Appropriate positioning of the 2-lead pacer. No pneumothorax. ACT 112: Negative or not required by law. Electronically signed by: Taras Potter M.D. 07/27/2019 9:02 AM
--- NOTE | 2019-07-27 09:14 | Cardiology Progress Note ---
Date of Service July 27, 2019 Assessment & Plan (1) Tachycardia-bradycardia syndrome: (2) PAF (paroxysmal atrial fibrillation): The patient can be discharged to outpatient follow-up. I will arrange follow-up through our clinic for a wound check and device interrogation. Subjective EKG indicates in a paced rhythm. The patient had an uneventful night. Pacemaker evaluation as well as chest x- ray are unremarkable. Review of Systems Review of Systems: All systems reviewed & are unremarkable except as noted in HPI & below Nothing additional to add. Physical Exam Physical Exam: General: no acute distress and stated age Head: normocephalic, no masses, lesions, tenderness or abnormalities Eyes: conjunctiva are pink and non-injected, sclera clear Neck: supple, no adenopathy, no bruits, normal jugular venous pulse, no hepatojugular reflux Chest: The pacemaker insertion site looks good. Lungs: clear to auscultation and percussion Cardiac Exam: - regular rate & rhythm, no murmurs gallops or rubs - normal S1, normal S2 Pulses: 2(+) throughout Abdomen: abdomen soft, non-tender, no abnormal masses and no hepatosplenomegaly Musculoskeletal: no gait disturbance, no joint inflammation, no deforming arthritis Extremities: no edema and no cyanosis Neuro: grossly normal exam Results & Data Vital Signs (Past 12 Hours) Vital Signs Temp Pulse Resp BP Pulse Ox 07/27/19 07:56 36.8 C 79 18 130/76 95 07/27/19 04:16 36.4 C L 60 18 126/78 94 07/26/19 23:06 36.5 C 60 19 114/70 94 Laboratory Results Laboratory Results - last 24 hr 07/27/19 07/27/19 06:41 06:41 WBC 6.54 RBC 4.54 Hgb 14.2 Hct 42.2 MCV 93.0 MCH 31.3 MCHC 33.6 RDW Std Deviation 43.3 RDW Coeff of Sebastian 12.7 Plt Count 194 MPV 10.3 Immature Gran % (Auto) 0.3 Neut % (Auto) 64.7 Lymph % (Auto) 26.0 [place] % (Auto) 7.0 Eos % (Auto) 1.7 Baso % (Auto) 0.3 Immature Gran # (Auto) 0.02 Neut # (Auto) 4.23 Lymph # (Auto) 1.70 [place] # (Auto) 0.46 Eos # (Auto) 0.11 Baso # (Auto) 0.02 Sodium 137 Potassium 3.9 Chloride 105 Carbon Dioxide 27 Anion Gap 5.0 BUN 19 H Creatinine 1.02 Est Cr Clr Drug Dosing 57.0 Est GFR ( Amer) 65.5 Est GFR (Non-Af Amer) 56.5 BUN/Creatinine Ratio 19.0 Glucose 88 Calcium 9.1 Total Bilirubin 1.0 AST 22 ALT 17 Alkaline Phosphatase 56 Total Protein 7.7 Albumin 4.0 Globulin 3.7 Albumin/Globulin Ratio 1.1 Medications Administered Current Inpatient Medications Acetaminophen (Tylenol) 650 mg PO Q4H PRN PRN Reason: Pain or Fever Stop: 08/24/19 20:34 Last Admin: 07/26/19 22:09 Dose: 650 mg Documented by: Al Hydrox/Mg Hydrox/Simethicone (Maalox) 15 ml PO Q4H PRN PRN Reason: Dyspepsia Stop: 08/24/19 20:34 Apixaban (Eliquis) 5 mg PO BID [facility] Stop: 08/27/19 08:59 Fish Oil (Cascade-3 (Purified Fish Oil)) 1 gm PO DAILY JEANNIE Stop: 08/25/19 08:59 Last Admin: 07/26/19 10:01 Dose: 1 gm Documented by: Losartan Potassium (Cozaar) 25 mg PO DAILY JEANNIE Stop: 08/25/19 08:59 Last Admin: 07/26/19 10:01 Dose: 25 mg Documented by: Metoprolol Succinate (Toprol Xl) 50 mg PO DAILY [facility] Stop: 08/25/19 15:29 Ondansetron HCl (Zofran) 4 mg IV Q6H PRN PRN Reason: Nausea Stop: 08/24/19 20:34 Oxycodone HCl (Roxicodone Immediate Rel) 5 mg PO Q6H PRN PRN Reason: Pain Stop: 08/09/19 16:59 Polyethylene Glycol (Miralax Powder Packet) 17 gm PO DAILY PRN PRN Reason: Constipation Stop: 08/24/19 20:34 Simvastatin (Zocor) 20 mg PO QPM JEANNIE Stop: 08/24/19 20:59 Last Admin: 07/26/19 19:53 Dose: 20 mg Documented by:
--- NOTE | 2019-07-27 09:40 | Hospitalist Progress Note ---
Date of Service July 27, 2019 Assessment & Plan (1) Tachycardia-bradycardia syndrome: -as per admission history and physical "This is a 68-year-old female who has significant PMH of HTN, HLD, CKD stage III, history of PSVT who presents to ED at the referral of her sales and marketing analyst secondary to evidence of tachybradycardia syndrome on Holter monitor. Patient had outpatient zio patch performed which resulted on 07/25/2019. Final interpretation is concerning for evidence of tachy- mila syndrome, patient with episode of atrial fibrillation with RVR along with pauses recording from 3.75 seconds. ED provider discussed case with on-call sales and marketing analyst who recommended admission" s/p placement of cardiac pacemaker -s/p Pacer with A/V Leads (Dual) placement on 07/26/2019 (2) HTN (hypertension): -on losartan -beta blockers are held (3) HLD (hyperlipidemia): Continue statin (4) CKD (chronic kidney disease), stage III: -monitor renal function (5) Asymptomatic bacteriuria: Urinalysis revealed +2 leukocyte esterase and +1 bacteria, minimal epithelial Patient asymptomatic, afebrile and wbc WNL urine culture No growth; Less than 1,000 colonies/mL, (6) Abnormal CXR: CXR Revealed: 1.3 cm nodular opacity of the lateral left midlung is new from the 2009 exam and may reflect a calcified granuloma. recommend follow up with PCP For repeat evaluation breathing is asymptomatic (7) DVT prophylaxis: SCD/TEDS for now [phone] Admission and Anticipated Discharge Date Admission Date: July 25, 2019 Subjective Patient tolerating chest discomfort from pacemaker insertion site. breathing on room air. no palpitations. no nausea. no vomiting. no dizziness. no headache Review of Systems Review of Systems: All systems reviewed & are unremarkable except as noted in HPI & below Physical Exam Eyes: PERRL, conjunctivae normal, anicteric sclerae EOM intact bilaterally ENMT: external ear and nose normal, oropharynx normal Neck: normal visual inspection Respiratory: normal respiratory effort, lungs clear to auscultation Cardiovascular: Rate/Rhythm: regular rate Gastrointestinal (Abdomen): normal bowel sounds, soft, nontender, no hepatosplenomegaly Musculoskeletal: Head/Neck/Chest: normocephalic and head atraumatic Neurologic: PERRL, EOMI, accommodation nl, no face palsy, no dysarthria CN's II-XI intact bilaterally Psychiatric: A+Ox3, euthymic affect Results & Data ([facility]) Vital Signs (Past 12 Hours) Vital Signs Temp Pulse Resp BP Pulse Ox 07/27/19 07:56 36.8 C 79 18 130/76 95 07/27/19 04:16 36.4 C L 60 18 126/78 94 07/26/19 23:06 36.5 C 60 19 114/70 94
--- NOTE | 2019-07-27 09:55 | Discharge Summary ---
Date of Service July 27, 2019 Admission HPI Per Admitting Provider This is a 68-year-old female who has significant PMH of HTN, HLD, CKD stage III, history of PSVT who presents to ED at the referral of her dishwasher secondary to evidence of tachybradycardia syndrome on Holter monitor. She elicits for years she has had episodes of, "my heart racing very fast for about 1 hour," and that resolves. She describes these as heart palpitations that resolve on their own. When she gets the palpitations she is otherwise asymptomatic and denies any associated chest pain, shortness of breath, fatigue, dizziness or lightheadedness. She denies any recent illness. She elicits her mom and sister have had something similar in which they both have had pacemakers. Currently she otherwise feels well and has and other family members at bedside. She denies any fever, chills, sweats, lightheadedness, dizziness, chest pain, shortness of breath, nausea, vomiting, abdominal pain, dysuria, increased urgency or frequency with urination, melena, hematochezia. Her appetite has been, "too good." She denies significant weight gain or loss. She denies any lower extremity swelling. In ED she remained hemodynamically stable. She remained in normal sinus rhythm. She underwent CBC and CMP which was relatively unremarkable, BUN and creatinine 20 and 1.10, glucose 114, mag 2.0, troponin WNL. Urinalysis +2 leukocyte esterase, +1 bacteria. She is afebrile, WBC WNL and asymptomatic. Urine culture sent. CXR: revealed 1.3 cm nodular opacity of the left lung mid zone which is new from 2009 exam, may reflect calcified granuloma, minimal left lung base opacities suggest atelectasis or scarring. EKG revealed NSR. Principal Diagnosis Tachycardia-bradycardia syndrome s/p Pacer with A/V Leads (Dual) placement on 07/26/19 (s/p placement of cardiac pacemaker) HTN (hypertension) HLD (hyperlipidemia) abnormal Chest X ray Asymptomatic bacteriuria Discharge Exam Eyes PERRL, conjunctivae normal, anicteric sclerae EOM intact bilaterally ENMT external ear and nose normal, oropharynx normal Neck normal visual inspection Respiratory normal respiratory effort, lungs clear to auscultation Cardiovascular Rate/Rhythm: regular rate Gastrointestinal (Abdomen) normal bowel sounds, soft, nontender, no hepatosplenomegaly Musculoskeletal Head/Neck/Chest: normocephalic and head atraumatic Neurologic PERRL, EOMI, accommodation nl, no face palsy, no dysarthria CN's II-XI intact bilaterally Psychiatric A+Ox3, euthymic affect Discharge Data Allergies Allergy/AdvReac Type Severity Reaction Status Date / Time No Known Allergies Allergy Unknown ? Verified 07/25/19 19:25 naproxen AdvReac Intermediate NAUSEA Verified 07/25/19 19:25 WITH STOMACH PAIN Consultations 07/25/19 19:05 ED Decision to Admit Stat 07/25/19 20:35 Consult Cardiology Routine 07/27/19 08:04 Burn CD for patient Stat Procedures Performed Operation Date: 07/26/19 12:30 Actual Procedures p Pacer with A/V Leads (Dual) - Dalila Bowling DO Ordered Studies 07/26/19 11:22 CL Cath Imgs for PACS use only Routine Hospital Course (1) Tachycardia-bradycardia syndrome: -as per admission history and physical "This is a 68-year-old female who has significant PMH of HTN, HLD, CKD stage III, history of PSVT who presents to ED at the referral of her dishwasher secondary to evidence of tachybradycardia syndrome on Holter monitor. Patient had outpatient zio patch performed which resulted on 07/25/2019. Final interpretation is concerning for evidence of tachy- mila syndrome, patient with episode of atrial fibrillation with RVR along with pauses recording from 3.75 seconds. ED provider discussed case with on-call dishwasher who recommended admission" s/p placement of cardiac pacemaker -s/p Pacer with A/V Leads (Dual) placement on 07/26/2019 (2) HTN (hypertension): -on losartan -beta blockers are held (3) HLD (hyperlipidemia): Continue statin (4) CKD (chronic kidney disease), stage III: -monitor renal function (5) Asymptomatic bacteriuria: Urinalysis revealed +2 leukocyte esterase and +1 bacteria, minimal epithelial Patient asymptomatic, afebrile and wbc WNL urine culture No growth; Less than 1,000 colonies/mL, (6) Abnormal CXR: CXR Revealed: 1.3 cm nodular opacity of the lateral left midlung is new from the 2009 exam and may reflect a calcified granuloma. recommend follow up with PCP For repeat evaluation breathing is asymptomatic (7) DVT prophylaxis: SCD/TEDS for now [phone] Total Time Total Time Spent Total Time Spent (In Minutes): 40 minutes Total Time Includes: Examination of the Patient, Discharge Planning, Medication Reconciliation and Communication With Other Providers Discharge Plan Discharge Items Patient Disposition: Home - Self-Care Reason For Visit: TACHY MILA [employer]NDROME Discharge Diagnosis: Tachycardia-bradycardia syndrome s/p Pacer with A/V Leads (Dual) placement on 07/26/19 (s/p placement of cardiac pacemaker) HTN (hypertension) HLD (hyperlipidemia) abnormal Chest X ray Asymptomatic bacteriuria Condition on Discharge: Good Activity: As commented below Activity Comment: Do not lift the left elbow over the left shoulder for 1 month Lifting: No more than 10 pounds Lifting Comment: do not lift more than 10 pounds with the left arm for 2 weeks Bathing: Keep incision dry Bathing Comment: keep dressing on & dry until wound check next week Sexual Activity: After two weeks Non-emergency contact: Primary Care Provider and Choral Director Call non-emergency contact if: you have any medication questions Follow-up/Referrals: Deedee Pringle MD [Primary Care Provider] - 08/01/19 11:20 am () Diet: Heart Healthy Addtl Attending Provider Instructions: discharge medications sent electronically to [address] [place] [address] 08/01/2019 11:20 AM Provider Kike Mondragon MD Department Internal Medicine [facility] Device and wound check at [facility] on 08/01/2019 at 2:15pm Look at the device site every day for the next month if you notice any concerns or swelling call [facility] immediately Please wear a surgical bra for the next 2 weeks Can start Eliquis 5mg BID monday07/28/2019 and no Aspirin 08/12/2019 8:00 AM Gifty WILLS Department Radiology [facility] 08/22/2019 3:00 PM Provider Faustino Anderson PA-C Department Cardiology, [facility] 09/24/2019 9:00 AM Provider Deedee Pringle MD Department Internal Medicine [facility] 01/02/2020 8:00 AM Provider Faustino Anderson PA-C Department Cardiology [facility] Machine Repairer Provider Instructions: Abnormal Chest X ray: Chest X ray Revealed: 1.3 cm nodular opacity of the lateral left midlung is new from the 2009 exam and may reflect a calcified granuloma. recommend follow up with PCP For repeat evaluation Pending Studies at Discharge: No Stand-Alone Forms: My [facility] SEAT 4a, Smoking Cessation Medications and DC Order Prescriptions: New Eliquis 5 mg Tablet 5 mg PO BID 30 Days Qty: 60 RF: 0 metoprolol succinate 50 mg Tablet Extended Release 24 Hr 50 mg PO DAILY 30 Days Qty: 30 RF: 0 acetaminophen 325 mg tablet 325 mg PO Q6H PRN (Reason: fever or pain) 5 Days Qty: 20 RF: 0 oxycodone 5 mg Tablet 5 mg PO Q6H PRN (Reason: moderate to severe pain) 4 Days Qty: 16 RF: 0 Continued polyethylene glycol 3350 [Miralax] 17 gram Powder In Packet 17 g PO DAILY PRN (Reason: Constipation) RF: 0 garlic 1,000 mg Capsule 1,000 mg PO DAILY RF: 0 simvastatin [Zocor] 20 mg tablet 20 mg PO QPM RF: 0 losartan [Cozaar] 25 mg tablet 25 mg PO DAILY RF: 0 Lactobacillus acidophilus [Acidophilus] Capsule 0 mg PO DAILY RF: 0 omega [id number]-fish oil [Fish Oil] 1,000 mg (120 mg-180 mg) Capsule 1 cap PO DAILY RF: 0 Discontinued aspirin 81 mg Tablet,Delayed Release (Dr/Ec) 81 mg PO QPM RF: 0 metoprolol succinate [Toprol XL] 25 mg tablet extended release 24 hr 25 mg PO QPM RF: 0 Discharge Orders: Discharge Order (Routine); Ordered 07/27/19 Ordered By: Kiel Bernal Admission Data Admit Date/Time: 07/25/19 19:49 Attending Provider: Kiel Bernal Admit Provider: Crow Moran Primary Care Provider: Deedee Pringle Other Providers: Crow Moran ; Trever Huynh
[2019-07-27] MEDS: LOSARTAN POTASSIUM 25 MG TAB PO SCH (09:59)
[2019-07-27] MEDS: OMEGA-3 (PURIFIED FISH OIL) 1 GM CAP PO SCH (09:59)
[2019-07-28] MEDS ORDERED: APIXABAN 5 MG TABLET PO SCH (09:00)
--- NOTE | 2019-07-29 12:19 | Electrocardiogram Report ---
Test Reason : Blood Pressure : / mmHG Vent. Rate : 060 BPM Atrial Rate : 060 BPM P-R Int : 122 ms QRS Dur : 086 ms QT Int : 424 ms P-R-T Axes : 005 -10 048 degrees QTc Int : 424 ms Poor data quality, interpretation may be adversely affected Atrial-paced rhythm Abnormal ECG When compared with ECG of 26-JUL-2019 16:04, Non-specific change in ST segment in Inferior leads Non-specific change in ST segment in Lateral leads T wave inversion now evident in Lateral leads Confirmed by Eber Olivera ([id number]) on 07/29/2019 12:19:01 PM Referred By: Faustino Anderson Confirmed By:Eber Olivera
--- NOTE | 2019-08-06 10:42 | Operative Report (OR) ---
DATE OF OPERATION: 07/26/2019 PREOPERATIVE DIAGNOSIS: Tachybrady syndrome. POSTOPERATIVE DIAGNOSIS: Tachybrady syndrome. PROCEDURE: Dual chamber rate responsive permanent pacemaker along with peripheral venogram under fluoroscopic guidance. SURGEON: Dalila Bowilng DO ASSISTANTS: None. ANESTHESIA: Monitored conscious sedation administered under my supervision by Mirian Dumont. Start time 1339 end time 1502. Total of 4 mg of Versed, 100 mcg of fentanyl. INTRAVENOUS FLUIDS: 46 mL. IV CONTRAST: 10 mL. ANTIBIOTICS: 2 grams of Ancef. BLOOD LOSS: 20 mL. URINE OUTPUT: Not applicable. SPECIMENS: None. FINDINGS: See below. DRAINS: None. INDICATIONS: This is a 68-year-old female with past medical history for paroxysmal atrial fibrillation that was newly found and diagnosed on a Zio patch along with tachybrady syndrome. Chronic kidney disease stage III, hypertension, hyperlipidemia, diaphragmatic hernia. Due to the newly diagnosed tachybrady syndrome, paroxysmal atrial fibrillation, she was recommended a dual chamber pacemaker. CONSENT: Consent was obtained prior to the patient going into electrophysiology lab. The patient was informed of the risks, benefits and alternative procedure. Risks include but not limited to sudden cardiac , cardiac arrhythmias, cerebrovascular accident, myocardial infarction, injury to the blood vessels, chamber of the heart, lung, bleeding, and infection. The patient understood these risks and agreed to the procedure as planned. Informed consent was obtained. DESCRIPTION OF THE PROCEDURE: The patient was brought into the electrophysiology lab in a fasting state. She was connected to continuous maintenance supervisor 2nd shift. A timeout was performed to ensure patient identity and procedure correctly. The patient was prepped and draped over the left infraclavicular space in normal surgical standard fashion. Monitored conscious sedation was given throughout the procedure for patient's comfort level. She received prophylactic antibiotics prior to incision. Chadwick precautions obtained throughout the procedure. 10 mL of 1% lidocaine bupivacaine mixture were given within the left deltopectoral groove. Incision was made in left deltopectoral groove. Blunt dissection was performed down to identify the cephalic vein; however, none could be identified, so peripheral venogram using 10 mL of IV contrast with 10 mL of saline followed by 20 mL flush was performed. Axillary venous access was obtained through a needlestick without any complications. The guidewire was inserted without any resistance. An 8-[place] sheath was inserted over the guidewire without any resistance. Dilator was removed and a second guidewire was inserted through the 8-[place] sheath to allow for retained venous access. Sheath was removed, flushed reinserted with the 8-[place] sheath then the 8-[place] sheath was inserted over the guidewires. Guidewire and dilator removed. The right ventricular lead was then advanced into right ventricle and positioned in ventricular apex under fluoroscopic guidance. There was adequate pacing and sensing thresholds and no diaphragmatic stimulation with high output pacing. The 8-[place] sheath was peeled away and lead was fixated to pectoralis muscle using 0 silk suture. A second 8-[place] sheath was inserted over the retained guidewire without any resistance. The guidewire and dilator removed. The right atrial lead was then advanced into right atrium and positioned interatrial appendage under fluoroscopic guidance. There was adequate pacing and sensing thresholds and no diaphragmatic stimulation with output pacing. The 8-[place] sheath was peeled away and lead was fixated to pectoralis muscle using 0 silk suture. Pacemaker pocket was created using blunt dissection over the pectoralis muscle within the pectoralis fascia. Pocket was flushed with copious amounts of bacitracin saline wash and inspected for hemostasis. Pulse generator was then attached to leads, making sure that the pins were in appropriate position, passed set screw and set screws were all tightened. Pulse generator was then placed in the pocket, making sure that the leads were lying flat beneath the device and a stay stitch using 0 silk suture was used to secure this pectoralis muscle. The incision was then closed in 3-layer fashion with 2-0 Vicryl interrupted suture followed by 3-0 Vicryl interrupted suture followed by a 4-0 Monocryl running stitch, followed then by Dermabond and Telfa Micropore dressing. EQUIPMENT: 1. Pulse generator is a Medtronic [place] XT DR BRIANNA Casper [id number], serial number [id number]. 2. Right atrial lead Medtronic 5076-52 cm, serial [id number]. 3. Right ventricular lead, Medtronic 5076-58 cm, serial number [id number]. INTRAOPERATIVE TESTIN. Right atrial lead: P waves 1 millivolt, impedance 587 ohms, threshold 1.6 volts at 0.5 milliseconds. 2. Right ventricular lead: R waves 8.5 millivolts, impedance 1221 ohms, threshold 0.4 volts at 0.5 milliseconds. FINAL MEASUREMENTS THROUGH THE DEVICE: 1. Right atrial lead: P waves 1.9 millivolts, impedance 475 ohms, threshold 0.75 volts at 0.4 milliseconds. 2. Right ventricular lead: R-wave 10.5 millivolts, impedance 1100 ohms, threshold 0.5 volts at 0.4 milliseconds. FINAL PARAMETERS: MVP/R 60/130, right atrial amplitude 3.5 volts, pulse width 0.4 milliseconds, sensitivity 0.3 millivolts. Right ventricular amplitude 3.5 volts, pulse width 0.4 milliseconds, sensitivity 0.9 millivolts. IMPRESSION: Successful dual chamber rate responsive permanent pacemaker under fluoroscopic guidance along with peripheral venogram secondary to tachybrady syndrome. PLAN: Monitor patient overnight, 12-lead ECG, chest x-ray. She is not allowed to lift left elbow or left shoulder for 1 month. She cannot lift more than 10 pounds with the left arm for 2 weeks. She is to keep the dressing on and dry for the next week until her wound check at [facility] on 08/01/2019 at 2:15 p.m. We can restart her on Toprol and anticoagulation as per the primary inspecting engineer. I attest to the content of the Intraoperative Record and any orders documented therein. Any exceptions are noted below. TORRES
== END 2019-07-27 12:20 | disposition home or self-care (01) | DRG 244 ==
LOC: ED 17:33 → 2S 19:49 → SUATTDRO 19:49 → 2S 20:22